=== PATIENT | female | born 1980 | race Caucasian/White ===

== ENCOUNTER 2024-04-18 15:14 | Outpatient (CLI) | payer BC | END 2024-04-18 15:15 | disposition home or self-care (01) | LOC: CSHMAMMO 15:14 | PROVIDERS: ATTEND Physician Assistant | DX: Z12.31 Encounter for screening mammogram for malignant neoplasm of breast (principal) | CPT/HCPCS: 77063; 77067 ==

== ENCOUNTER 2025-01-14 15:35 | Outpatient (CLI) | payer BC | END 2025-01-14 15:36 | disposition home or self-care (01) | LOC: CSHRAD 15:35 | PROVIDERS: ATTEND Family Medicine Sports Medicine | DX: R07.89 Other chest pain (principal); M25.552 Pain in left hip; M24.7 Protrusio acetabuli | CPT/HCPCS: 71046 ==